=== PATIENT | male | born 1980 | race African-American/Black ===

== ENCOUNTER 2016-09-02 21:12 | Emergency (ER) | payer SELFPAY | END 2016-09-02 23:50 | disposition home or self-care (01) | LOC: D.ER 21:12 | DX: M25.511 Pain in right shoulder (principal); S46.911A Strain of unspecified muscle, fascia and tendon at shoulder and upper arm level, right arm, initial encounter; X58.XXXA Exposure to other specified factors, initial encounter ==

== ENCOUNTER 2016-12-19 22:17 | Emergency (ER) | payer SELFPAY | END 2016-12-19 23:40 | disposition home or self-care (01) | LOC: D.ER 22:17 | DX: A64 Unspecified sexually transmitted disease (principal) ==